=== PATIENT | male | born 1935 | race Caucasian/White ===

== ENCOUNTER → 2023-08-30 10:43 | Outpatient (REF) | payer MEDICARE, OTHER, SELFPAY ==
[2023-08-30 12:14] LABS: Urine Albumin Trace (Neg - Trace); Urine Bilirubin Negative (Negative); Urine Character Clear (Clear); Urine Color Yellow; Urine Glucose Negative (Negative); Urine Ketone Negative (Negative); Urine Leukocyte Negative (Negative); Urine Nitrite Negative (Negative); Urine Occult Blood Negative (Negative); Urine Urobilinogen Negative (Neg - 1+)
[2023-08-30 12:18] LABS: % Basophils 0.7 % (0-2); % Eosinophils 2.8 % (0-6); % Immature Granulocytes 0.6 % (0-0.5); % Lymphocytes 24.4 % (20.5-51.1); % Monocytes 11.1 % (1.7-9.3); % Neutrophils 60.4 % (42.2-75.2); Absolute Eosinophils 0.2 10^3/uL (0-0.7); Absolute Lymphocytes 1.3 10^3/uL (1.2-3.4); Absolute Monocytes 0.6 10^3/uL (0.1-0.6); Absolute Neutrophils 3.3 10^3/uL (1.4-6.5); Hematocrit 40.3 % (39.0-52.0); Hemoglobin 13.5 g/dL (13.0-18.0); Mean Corp Hgb Conc. 33.5 g/dL (33.0-37.0); Mean Corpuscular Hgb 30.2 pg (27.0-31.0); Mean Corpuscular Volume 90.2 fL (80.0-94.0); Mean Platelet Volume 10.9 fL (7.4-10.4); Nucleated Red Blood Cells % 0 % (-); Platelet Count 142 10^3/uL (130-400); Red Blood Cell Count 4.47 10^6/uL (4.70-6.10); Red Cell Dist. Width 12.5 % (11.5-14.5); White Blood Cell Count 5.4 10^3/uL (4.8-10.8)
[2023-08-30 12:44] LABS: ALT (SGPT) 31 U/L (0-50); AST (SGOT) 34 U/L (17-59); Alkaline Phosphatase 92 U/L (38-126); Blood Urea Nitrogen 27 mg/dl (9-20); Calcium 10.3 mg/dl (8.4-10.2); Carbon Dioxide 26 mmol/L (22-30); Chloride 105 mmol/L (98-107); Glucose 109 mg/dl (70-99); HDL Cholesterol 80 mg/dl; LDL Cholesterol, Calculated 99 mg/dl; Potassium 4.3 mmol/L (3.5-5.1); Sodium 136 mmol/L (135-145); Total Bilirubin 0.9 mg/dl (0.2-1.3); Total Cholesterol 192 mg/dl (50-199); Triglyceride 68 mg/dl (10-149); Very Low Density Lipoprotein 13 mg/dl (0-30); eGFR > 60.00
[2023-08-30 12:47] LABS: Glycohemoglobin (HgbA1c) 5.9 % (4.0-5.6)
[2023-08-30 12:53] LABS: Vitamin D, 25-OH*** 33.9 ng/mL (30-80)
== END ==
LOC: REG 10:43
PROVIDERS: ATTENDING PHYSICIAN Internal Medicine Geriatric Medicine
DX: I34.0 Nonrheumatic mitral (valve) insufficiency (principal); I10 Essential (primary) hypertension; K21.9 Gastro-esophageal reflux disease without esophagitis; E55.9 Vitamin D deficiency, unspecified; Z86.010 Personal history of colon polyps; D64.9 Anemia, unspecified; E78.2 Mixed hyperlipidemia; E21.3 Hyperparathyroidism, unspecified; Z95.0 Presence of cardiac pacemaker; E66.9 Obesity, unspecified; G47.30 Sleep apnea, unspecified; I42.8 Other cardiomyopathies; G43.009 Migraine without aura, not intractable, without status migrainosus; I95.2 Hypotension due to drugs; R73.01 Impaired fasting glucose
CPT/HCPCS: 36415; 80053; 80061; 81003; 82306; 83036; 85025

== ENCOUNTER 2023-11-25 21:29 | Emergency (ER) | payer MEDICARE, OTHER, SELFPAY ==
[2023-11-25 22:00] VITALS: BP 169/74
[2023-11-25 22:00] LABS: % Basophils 0.9 % (0-2); % Eosinophils 1.8 % (0-6); % Immature Granulocytes 0.4 % (0-0.5); % Lymphocytes 17.9 % (20.5-51.1); % Monocytes 12.4 % (1.7-9.3); % Neutrophils 66.6 % (42.2-75.2); Absolute Basophils 0.1 10^3/uL (0-0.2); Absolute Eosinophils 0.1 10^3/uL (0-0.7); Absolute Lymphocytes 1.4 10^3/uL (1.2-3.4); Absolute Monocytes 0.9 10^3/uL (0.1-0.6); Hematocrit 37.6 % (39.0-52.0); Hemoglobin 13.1 g/dL (13.0-18.0); Mean Corp Hgb Conc. 34.8 g/dL (33.0-37.0); Mean Corpuscular Hgb 30.5 pg (27.0-31.0); Mean Corpuscular Volume 87.4 fL (80.0-94.0); Mean Platelet Volume 10.5 fL (7.4-10.4); Nucleated Red Blood Cells % 0 % (-); Platelet Count 157 10^3/uL (130-400); Red Cell Dist. Width 12.6 % (11.5-14.5); White Blood Cell Count 7.6 10^3/uL (4.8-10.8)
[2023-11-25 22:52] LABS: ALT (SGPT) 30 U/L (0-50); AST (SGOT) 38 U/L (17-59); Albumin 4.1 g/dl (3.5-5.0); Alkaline Phosphatase 141 U/L (38-126); Blood Urea Nitrogen 33 mg/dl (9-20); Calcium 10.1 mg/dl (8.4-10.2); Carbon Dioxide 23 mmol/L (22-30); Chloride 103 mmol/L (98-107); Glucose 130 mg/dl (70-99); Sodium 135 mmol/L (135-145); Total Bilirubin 0.5 mg/dl (0.2-1.3); Total Protein 7.1 g/dl (6.3-8.2); eGFR > 60.00
[2023-11-25 23:00] VITALS: BP 176/85
[2023-11-26] VITALS (7 sets, daily range): BP systolic 124–163; BP diastolic 76–93
--- NOTE | 2023-11-26 00:33 | ED.GENMED ---
History of Present Illness
<Elbert Robles MD - Last Filed: 11/27/23 06:01>
General
Chief Complaint: Chest Pain
Source: patient
Exam Limitations: none
Time Seen by Provider: 11/25/23 22:29
Nursing documentation reviewed up to this point in time: agreed with
History of Present Illness
History of Present Illness:
Patient presents to ED secondary to sudden onset of chest pain, while he was at home at 6 PM. Chest pain described as crampy and achy, nonradiating, without any alleviating or exacerbating factors. Denies associated shortness of breath, nausea, or
diaphoresis. Denies previous history of similar symptoms. Denies recent illness. Denies back pain. Denies leg pain or swelling. Denies recent change in medications or diet. Denies recent change in activities. Denies previous history of
similar chest pain. There is no family history of chest pain. Patient is an ex-smoker.
Past History
<Elbert Robles MD - Last Filed: 11/27/23 06:01>
Past History
ED Past Medical History: Arrthythmia, Cancer (Prostate), GERD and Valvular disease
ED Past Surgical History: Appendectomy and Tonsilectomy
Social History
Personal:
Review of Systems
<Elbert Robles MD - Last Filed: 11/27/23 06:01>
Review of Systems
Allergies reviewed?: Yes
All Other Systems: ROS reviewed and negative except as documented in HPI and ROS
Constitutional: Reports no symptoms
Respiratory: Reports no symptoms; Denies trouble breathing
Cardiac: Reports chest pain; Denies diaphoresis or palpitations
ABD/GI: Reports no symptoms
Musculoskeletal: Reports no symptoms
Skin: Reports no symptoms
Neurological: Reports no symptoms
Phy Exam
<Elbert Robles MD - Last Filed: 11/27/23 06:01>
Physical Exam
Physical Exam:
Physical Exam
General: no apparent distress, not acutely ill. afebrile
Head: nc/at. eomi
Neck: supple. normal range of motion.
Heart: s1/s2 regular rate and rhythm, systolic murmur. equal radial pulses.
Lungs: no acute respiratory distress. chest wall nontender to palpation.
Abdomen: normal bowel sounds. not tender.
Neuro: alert and oriented. no focal neurological deficits
Skin: no rash
Psychiatric: well kept. interactive and cooperative
Extremities: no edema. no calf tenderness.
Scores
<Elbert Robles MD - Last Filed: 11/27/23 06:01>
Heart Score for Chest Pain Patients
STEMI patient?: No
History: Moderately Suspicious
ECG: Normal
Age: >/= 65 years
Risk Factors: 1 or 2 Risk Factors
Troponin: </= Normal Limit
Heart Score for Chest Pain Patients: 4
Heart Score Risk: 20.3% MACE over next 6 weeks
<Glenroy Horta DO - Last Filed: 11/26/23 07:00>
Heart Score for Chest Pain Patients
Heart Score for Chest Pain Patients: 4
Heart Score Risk: 20.3% MACE over next 6 weeks
<Mike Chavez MD - Last Filed: 11/26/23 15:49>
Heart Score for Chest Pain Patients
Heart Score for Chest Pain Patients: 4
Heart Score Risk: 20.3% MACE over next 6 weeks
Course
<Elbert Robles MD - Last Filed: 11/27/23 06:01>
Orders/Labs/Results
Orders:
Orders
11/25/23 21:33
Electrocardiogram (*1) Urgent
Reason for Study: Chest Pain
Cardiac Monitoring- Treatment ONCE
EKG- Treatment ONCE
IV Insert/Care/Rem.- Treatment PRN
O2 Therapy [RESP] Urgent
Titrate/Wean O2 to maintain O2 sat greater than (%): 90
Special Instructions: Maintain sats >/=90%
Pulse Ox/spot Check [RESP] Urgent
Quantity: 1
Special Instructions: ON ROOM AIR
11/25/23 21:51
Complete Blood Count/With Diff Urgent
11/25/23 22:27
Comprehensive Metabolic Panel Urgent
Troponin I Urgent
11/25/23 23:45
EKG- Treatment ONCE
11/26/23 01:46
Troponin I Urgent
11/26/23 02:00
Electrocardiogram (*1) Urgent
Reason for Study: Chest Pain
11/26/23 02:28
EKG- Treatment ONCE
11/26/23 06:00
Electrocardiogram (*1) Urgent
Reason for Study: Chest Pain
11/26/23 06:01
Troponin I Urgent
11/26/23 06:40
CR Chest - 2 Views Urgent
Comment:
Reason For Exam: cp
11/26/23 09:06
Metoprolol Xl [Toprol Xl] 25 mg PO NOW STA
Abnormal Lab Results
11/25/23 11/25/23 11/26/23
21:51 22:27 01:46
RBC 4.30 L 10^6/uL
(4.70-6.10)
Hct 37.6 L %
(39.0-52.0)
MPV 10.5 H fL
(7.4-10.4)
Absolute Monos (auto) 0.9 H 10^3/uL
(0.1-0.6)
Lymphocytes % 17.9 L %
(20.5-51.1)
Monocytes % 12.4 H %
(1.7-9.3)
BUN 33 H mg/dl
(9-20)
Glucose 130 H mg/dl
(70-99)
Alkaline Phosphatase 141 H U/L
(38-126)
Troponin I 0.035 H* ng/ml
11/26/23
06:01
RBC
Hct
MPV
Absolute Monos (auto)
Lymphocytes %
Monocytes %
BUN
Glucose
Alkaline Phosphatase
Troponin I 0.038 H* ng/ml
11/25/23 21:51
11/25/23 22:27
Vital Signs
Initial and Last Documented VS:
Initial Vital Signs
Temp Pulse Resp Pulse Ox
97.9 F 100 19 94
11/25/23 21:39 11/25/23 21:39 11/25/23 21:39 11/25/23 21:39
Last Documented Vital Signs
Temp Pulse Resp BP Pulse Ox
97.9 F 75 20 124/76 99
11/25/23 21:39 11/26/23 10:05 11/26/23 10:05 11/26/23 10:05 11/26/23 10:05
<Glenroy Horta, DO - Last Filed: 11/26/23 07:00>
Orders/Labs/Results
Orders:
Orders
11/25/23 21:33
Electrocardiogram (*1) Urgent
Reason for Study: Chest Pain
Cardiac Monitoring- Treatment ONCE
EKG- Treatment ONCE
IV Insert/Care/Rem.- Treatment PRN
O2 Therapy [RESP] Urgent
Titrate/Wean O2 to maintain O2 sat greater than (%): 90
Special Instructions: Maintain sats >/=90%
Pulse Ox/spot Check [RESP] Urgent
Quantity: 1
Special Instructions: ON ROOM AIR
11/25/23 21:51
Complete Blood Count/With Diff Urgent
11/25/23 22:27
Comprehensive Metabolic Panel Urgent
Troponin I Urgent
11/25/23 23:45
EKG- Treatment ONCE
11/26/23 01:46
Troponin I Urgent
11/26/23 02:00
Electrocardiogram (*1) Urgent
Reason for Study: Chest Pain
11/26/23 02:28
EKG- Treatment ONCE
11/26/23 06:00
Electrocardiogram (*1) Urgent
Reason for Study: Chest Pain
11/26/23 06:01
Troponin I Urgent
11/26/23 06:40
CR Chest - 2 Views Urgent
Comment:
Reason For Exam: cp
11/26/23 09:06
Metoprolol Xl [Toprol Xl] 25 mg PO NOW STA
Abnormal Lab Results
11/25/23 11/25/23 11/26/23
21:51 22:27 01:46
RBC 4.30 L 10^6/uL
(4.70-6.10)
Hct 37.6 L %
(39.0-52.0)
MPV 10.5 H fL
(7.4-10.4)
Absolute Monos (auto) 0.9 H 10^3/uL
(0.1-0.6)
Lymphocytes % 17.9 L %
(20.5-51.1)
Monocytes % 12.4 H %
(1.7-9.3)
BUN 33 H mg/dl
(9-20)
Glucose 130 H mg/dl
(70-99)
Alkaline Phosphatase 141 H U/L
(38-126)
Troponin I 0.035 H* ng/ml
11/26/23
06:01
RBC
Hct
MPV
Absolute Monos (auto)
Lymphocytes %
Monocytes %
BUN
Glucose
Alkaline Phosphatase
Troponin I 0.038 H* ng/ml
11/25/23 21:51
11/25/23 22:27
Vital Signs
Initial and Last Documented VS:
Initial Vital Signs
Temp Pulse Resp Pulse Ox
97.9 F 100 19 94
11/25/23 21:39 11/25/23 21:39 11/25/23 21:39 11/25/23 21:39
Last Documented Vital Signs
Temp Pulse Resp BP Pulse Ox
97.9 F 75 20 124/76 99
11/25/23 21:39 11/26/23 10:05 11/26/23 10:05 11/26/23 10:05 11/26/23 10:05
<Mike Chavez MD - Last Filed: 11/26/23 15:49>
Orders/Labs/Results
Orders:
Orders
11/25/23 21:33
Electrocardiogram (*1) Urgent
Reason for Study: Chest Pain
Cardiac Monitoring- Treatment ONCE
EKG- Treatment ONCE
IV Insert/Care/Rem.- Treatment PRN
O2 Therapy [RESP] Urgent
Titrate/Wean O2 to maintain O2 sat greater than (%): 90
Special Instructions: Maintain sats >/=90%
Pulse Ox/spot Check [RESP] Urgent
Quantity: 1
Special Instructions: ON ROOM AIR
11/25/23 21:51
Complete Blood Count/With Diff Urgent
11/25/23 22:27
Comprehensive Metabolic Panel Urgent
Troponin I Urgent
11/25/23 23:45
EKG- Treatment ONCE
11/26/23 01:46
Troponin I Urgent
11/26/23 02:00
Electrocardiogram (*1) Urgent
Reason for Study: Chest Pain
11/26/23 02:28
EKG- Treatment ONCE
11/26/23 06:00
Electrocardiogram (*1) Urgent
Reason for Study: Chest Pain
11/26/23 06:01
Troponin I Urgent
11/26/23 06:40
CR Chest - 2 Views Urgent
Comment:
Reason For Exam: cp
11/26/23 09:06
Metoprolol Xl [Toprol Xl] 25 mg PO NOW STA
Abnormal Lab Results
11/25/23 11/25/23 11/26/23
21:51 22:27 01:46
RBC 4.30 L 10^6/uL
(4.70-6.10)
Hct 37.6 L %
(39.0-52.0)
MPV 10.5 H fL
(7.4-10.4)
Absolute Monos (auto) 0.9 H 10^3/uL
(0.1-0.6)
Lymphocytes % 17.9 L %
(20.5-51.1)
Monocytes % 12.4 H %
(1.7-9.3)
BUN 33 H mg/dl
(9-20)
Glucose 130 H mg/dl
(70-99)
Alkaline Phosphatase 141 H U/L
(38-126)
Troponin I 0.035 H* ng/ml
11/26/23
06:01
RBC
Hct
MPV
Absolute Monos (auto)
Lymphocytes %
Monocytes %
BUN
Glucose
Alkaline Phosphatase
Troponin I 0.038 H* ng/ml
11/25/23 21:51
11/25/23 22:27
Vital Signs
Initial and Last Documented VS:
Initial Vital Signs
Temp Pulse Resp Pulse Ox
97.9 F 100 19 94
11/25/23 21:39 11/25/23 21:39 11/25/23 21:39 11/25/23 21:39
Last Documented Vital Signs
Temp Pulse Resp BP Pulse Ox
97.9 F 75 20 124/76 99
11/25/23 21:39 11/26/23 10:05 11/26/23 10:05 11/26/23 10:05 11/26/23 10:05
<Elbert Robels MD - Last Filed: 11/27/23 06:01>
MDM/Problems Addressed
MDM/Problems Addressed:
Patient remains chest pain-free during observation in ED. However, patient does have risk factors for cardiac disease. In addition, repeat troponin shows a minimal elevation, when compared to first troponin. As such, decision made to obtain
another troponin in 4 hours. If remains elevated, will consult cardiology for an evaluation.
<Elbert Robles MD - Last Filed: 11/27/23 06:01>
*EKG
Interpreted by ED Provider?: Yes
EKG Intrepretation Date: 11/26/23
Heart Rate: 86
Rhythm: ventricular paced
*Critical Care Note
Total Time (30-74mins, 75-104mins- exclusive of procedures): Not Applicable
<Glenroy Horta DO - Last Filed: 11/26/23 07:00>
Update Note
Update Note:
11/26/2023 0649 AM: Repeat EKG shows a ventricular paced rhythm with PVCs rate of 80. This is unchanged from previous EKG taken at 1:50 AM today. Repeat troponin was slightly elevated. I did [place] text cardiology, Dr. Ashely López or one of
her associates will see patient in the emergency department.
<Mike Chavez MD - Last Filed: 11/26/23 15:49>
Update Note
Update Note:
11/26/2023 0649 AM: Repeat EKG shows a ventricular paced rhythm with PVCs rate of 80. This is unchanged from previous EKG taken at 1:50 AM today. Repeat troponin was slightly elevated. I did [place] [facility] cardiology, Dr. Ashely López or one of
her associates will see patient in the emergency department.
UPDATE (Mike Chavez MD)
Patient here after an episode of chest pain which has since resolved. He had paced rhythm on EKG. He had labs which showed a marginally elevated troponin which has been flat. Case was discussed with cardiology to evaluate as patient was declining
admission. He was seen evaluate by cardiology here at the bedside. They arranged for outpatient follow-up next week and outpatient stress test. Recommended starting on Toprol as his blood pressures were elevated overnight. Stable for discharge
from their perspective. Patient requesting to be discharged. He is comfortable with this follow-up plan.
ED Attending Note
<Elbert Robles MD - Last Filed: 11/27/23 06:01>
-
Portions of this chart may have been created with voice recognition software.� Occasional wrong word or��sound alike� substitutions may have occurred due to the inherent limitations of voice recognition software.
Discharge Plan
Departure
Patient Disposition: Home (Routine Discharge)
Date of Disposition: 11/26/23
Time of Disposition: 09:06
Patient with high blood pressure during this ER visit?: Yes
Discharge Problem:
Chest pain
Instructions: Chest Pain DCA Follow Up
Prescriptions:
New
metoprolol succinate [Toprol XL] 25 mg tablet extended release 24 hr
25 mg PO DAILY Qty: 30 0RF
No Action
rabeprazole [AcipHex] 20 MG tablet,delayed release (DR/EC)
20 mg PO DAILY
Eliquis 5 MG tablet
5 mg PO BID
furosemide 40 mg Tablet
40 mg PO DAILY@1400
docusate sodium [Stool Softener] 100 mg Capsule
100 mg PO DAILY
Referrals:
Jacki Carter PA-C [Specified Professional Personl] - 12/03/23 2:20 pm (You have a follow up visit with Dr. Degroot's PA, Jacki Carter, at the [place] office. Please call with questions)
UNKNOWN - PT DOES,NOT KNOW [Family Provider] -
Activity Restrictions/Additional Instructions:
Thank you for visiting the Emergency Department at [facility].
1. Please schedule a follow up appointment as directed. Call first thing tomorrow morning to make an appointment.
2. If indicated, please take your medications as instructed and indicated on discharge paperwork.
3. If any of your symptoms do not improve, or persist, or become more severe within 6-12 hours, please return to the emergency department for further care.
4. Please return to the emergency department if you develop a headache, neck pain/stiffness, fever greater than 100.4F, chest pain, shortness of breath, persistent nausea, vomiting, slurred speech, difficulty walking, numbness/tingling, weakness,
signs of infection or any other symptoms that are worrisome to you.
Please call [phone] if you have any questions.
Interventions
Interventions:
*Risk Screen - Suicide Last Done: 11/25/23 21:39
*General Assessment Last Done: 11/25/23 21:39
*Neglect/Abuse Screening Last Done: 11/25/23 21:39
*ED COVID-19 Vaccine History Last Done: 11/25/23 21:39
*Nursing Disposition Last Done: 11/26/23 10:05
ED- Cardiac Assessment Last Done: 11/25/23 23:40
Discharge Date and Time
Discharge Date/Time: 11/26/23 10:06
Print Language: TURKMEN
[2023-11-26 02:24] LABS: Troponin I 0.035 ng/ml
[2023-11-26 06:37] LABS: Troponin I 0.038 ng/ml
--- NOTE | 2023-11-26 07:41 | CON.CAR ---
Addendum entered and electronically signed by Ese Shipman DO 11/26/23 16:28:
I saw and examined the patient.
The Manager Meat's note was reviewed and I agree with the note.
Comment: Patient seen and examined in ED bed 2 with cardiac PADusty Morales is an 88 year old male [his birthday was yesterday ] with PMH of permanent atrial fibrillation, TAVR, PPM, LBBB, HTN, ABILIO, GERD, and prostate cancer who presented to [facility] for
evaluation of chest pressure. He states he was sitting at the table with his around 6PM when he noted an aching along the left side of his chest. He states it was mild in nature and he denied any pain, but described it as only a mild pressure.
The pressure lasted for an hour or so and his decided to call EMS. He denied any radiation of the pressure and he had no alleviating or aggravating factors. He denied associated SOB, dizziness, palpitations, diaphoresis, or nausea. On arrival
to ER, his pressure has resolved and he notes he feels well this AM. He has had no recurrence of the pressure. In ER, he was found to have mildly elevated troponin at 0.038. Workup otherwise has been unremarkable. He states he is very active at
baseline, exercising at the gym 6 days per week without any exertional chest pain or SOB.
General: Well Developed, Well Nourished and No Apparent Distress
HEENT: Normocephalic, Anicteric and Moist Mucous Membranes
Respiratory: Clear and Non Labored Respirations
Cardiac: S1/S2, Irregular Rhythm and Murmur + Pacer
Musculoskeletal: No Edema
Plan:
-Atypical chest pain with cardiac risk factors
-Pain free throughout the ER stay. Denies any recurrence of pressure. Feels well and would like to go home.
-Troponin minimally elevated at 0.035, 0.038 in ER. Suspect nonischemic myocardial injury.
-Prior cath in 02/2022 with no significant CAD noted.
-Outpatient cardiac stress testing and follow-up to be arranged
-ACS warning signs and when to return to the ER to seek immediate medical attention reviewed with patient.
Hypertension with uncontrolled blood pressures
-Will start Toprol-XL 25 mg once daily
-Permanent atrial fibrillation status post pacemaker
-Continue Eliquis for anticoagulation.
-Appears euvolemic.
Plan to discharge home with arranged cardiac testing and follow-up as an outpatient
Discussed with the ER physician
Original Note:
Consultation
Consultation Request
Date/Time Consultation Requested: 11/26/2023
Date/Time Consultation Performed: 11/26/2023
Requesting Provider: Dr. Robles
Performing Provider: Dr. Shipman
Reason for Consultation: CP
Medical History
-
History of Present Illness:
HPI: Andrew is an 88 year old male with PMH of permanent atrial fibrillation, TAVR, PPM, LBBB, HTN, ABILIO, GERD, and prostate cancer who presented to [facility] for evaluation of chest pressure. He states he was sitting at the table with his around 6PM
when he noted an aching along the left side of his chest. He states it was mild in nature and he denied any pain, but described it as only a mild pressure. The pressure lasted for an hour or so and his decided to call EMS. He denied any
radiation of the pressure and he had no alleviating or aggravating factors. He denied associated SOB, dizziness, palpitations, diaphoresis, or nausea. On arrival to ER, his pressure has resolved and he notes he feels well this AM. He has had no
recurrence of the pressure. In ER, he was found to have mildly elevated troponin at 0.038. Workup otherwise has been unremarkable. He states he is very active at baseline, exercising at the gym 6 days per week without any exertional chest pain or
SOB. He states he has never had pressure in his chest like this before.
PMH:
Permanent atrial fibrillation
Chronic Eliquis anticoagulation
NICM w/ EF 40-45% 11/2022
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
LBBB
Mild MR
HTN
ABILIO on CPAP�
Barretts esophagus�
Macular degeneration�
Mild diverticulosis�
Sweet syndrome�
Colon polys�
Appendectomy
GERD�
Hiatal Hernia�
Prostate CA/XRT�
Home self-catheterization�
Past Medical History
Past Medical History: Other (In HPI)
Past Surgical History: Appendectomy, Cardiac (TAVR, PPM ) and Tonsilectomy
Social History
Tobacco: Former Smoker
Alcohol: None
Drug: None
Personal:
Living: With Family
Employment: Retired
Family History
Family History: CAD
Allergies / Home Medications
Allergy/AdvReac Type Severity Reaction Status Date / Time
aspirin Allergy Hives Verified 11/25/23 21:39
Penicillins Allergy Hives, Verified 11/25/23 21:39
throat
swelling
�Medication �Instructions �Recorded �Confirmed �Type
apixaban 5 mg tablet (Eliquis) 5 mg PO BID Blood pressure 11/11/21 03/26/22 History
rabeprazole 20 mg tablet,delayed 20 mg PO DAILY GERD 11/11/21 03/26/22 History
release (AcipHex)
ascorbic acid (vitamin C) 500 mg 500 mg PO DAILY Supplement 11/21/21 03/26/22 History
tablet (Vitamin C)
zinc 100 mg tablet (Zinc Chelate) 100 mg PO DAILY Supplement 11/21/21 03/26/22 History
acetaminophen 325 mg tablet 650 mg (2 x 325 mg) PO Q4HPRN PRN 03/27/22 Rx
pain #0 tabs
Review of Systems
-
History Source: Patient
All other systems: Negative unless noted
Physical Exam
Vital Signs
Temp Pulse Resp BP Pulse Ox
97.9 F 104 22 156/89 87
11/25/23 21:39 11/26/23 03:45 11/26/23 03:45 11/26/23 03:00 11/26/23 00:56
Lab Results
11/25/23 21:51
11/25/23 22:27
Troponin I 0.038 ng/ml H* 11/26/23 06:01
Physical Exam
General: Well Developed, Well Nourished and No Apparent Distress
HEENT: Normocephalic, Anicteric and Moist Mucous Membranes
Respiratory: Clear and Non Labored Respirations
Cardiac: S1/S2, Irregular Rhythm and Murmur
Musculoskeletal: No Clubbing, No Cyanosis and No Edema
Skin: Warm and Dry
Neuro: AO x 3 and Nonfocal/Grossly Intact
Psych: Calm
Impression / Plan
-
PCP: Dr. Foster
Biology Specialist: Dr. Degroot
Impression:
Presented with chest pressure
Elevated troponin
Permanent atrial fibrillation
Chronic Eliquis anticoagulation
NICM w/ EF 40-45% 11/2022
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
LBBB
Mild MR
HTN
ABILIO on CPAP�
Barretts esophagus�
Macular degeneration�
Mild diverticulosis�
Sweet syndrome�
Colon polys�
Appendectomy
GERD�
Hiatal Hernia�
Prostate CA/XRT�
Home self-catheterization�
LHC 02/11/2022: Left Main: normal. LAD: minor luminal irregularities noted with no focal obstructive disease. Ramus: minor irregularities. LCx: 40% ostial narrowing. RCA: small nondominant.
Echo 11/26/2022: EF 40-45%, mild-mod MR, s/p TAVR w/ peak/mean gradients 19/10 mmHg, mild-mod paravalvular AI, mod TR, mild-mod pulmonary hypertension 48 mmHg
Echo 11/26/2023: Study pending
Plan:
-Presented with chest pressure that started while sitting w/ at 6PM. No associated SOB. Denies any overt pain.
-Pain free throughout the ER stay. Denies any recurrence of pressure. Feels well and would like to go home.
-Troponin minimally elevated at 0.035, 0.038 in ER. Suspect nonischemic myocardial injury.
-Prior cath in 02/2022 with no significant CAD noted.
-Permanent atrial fibrillation noted w/ LBBB, HR stable on review of tele and on EKG. Occasional V pacing.
-Continue Eliquis for anticoagulation.
-BP somewhat elevated in ER. Maintained on lasix 40mg daily as OP, previously on losartan 50mg daily. Previously discontinued due to hypotension. Will start Toprol XL 25mg daily.
-Appears euvolemic.
-Check echo while in ER. If stable, ok for discharge.
-Cardiology follow up arranged and will arranged stress testing as OP.
HPI: Andrew is an 88 year old male with PMH of permanent atrial fibrillation, TAVR, PPM, LBBB, HTN, ABILIO, GERD, and prostate cancer who presented to [facility] for evaluation of chest pressure. He states he was sitting at the table with his around 6PM
when he noted an aching along the left side of his chest. He states it was mild in nature and he denied any pain, but described it as only a mild pressure. The pressure lasted for an hour or so and his decided to call EMS. He denied any
radiation of the pressure and he had no alleviating or aggravating factors. He denied associated SOB, dizziness, palpitations, diaphoresis, or nausea. On arrival to ER, his pressure has resolved and he notes he feels well this AM. He has had no
recurrence of the pressure. In ER, he was found to have mildly elevated troponin at 0.038. Workup otherwise has been unremarkable. He states he is very active at baseline, exercising at the gym 6 days per week without any exertional chest pain or
SOB. He states he has never had pressure in his chest like this before.
Data Reviewed
-
EKG: Tracing Personally Visualized and interpreted
Radiology: Report Reviewed by me
Labs: Labs Reviewed by me
Old Records: Reviewed
[2023-11-26] MEDS: TOPROL XL 25 MG PO (09:17)
== END 2023-11-26 10:06 | disposition home or self-care (01) ==
LOC: EMR 21:29
PROVIDERS: EMERGENCY PHYSICIAN Emergency Medicine; OTHER PHYSICIAN Internal Medicine Cardiovascular Disease
DX: R07.89 Other chest pain (principal); I48.21 Permanent atrial fibrillation; I44.7 Left bundle-branch block, unspecified; I10 Essential (primary) hypertension; G47.33 Obstructive sleep apnea (adult) (pediatric); K21.9 Gastro-esophageal reflux disease without esophagitis; K22.70 Barrett's esophagus without dysplasia; K57.90 Diverticulosis of intestine, part unspecified, without perforation or abscess without bleeding; H35.30 Unspecified macular degeneration; K44.9 Diaphragmatic hernia without obstruction or gangrene; Z95.0 Presence of cardiac pacemaker; Z79.01 Long term (current) use of anticoagulants; Z85.46 Personal history of malignant neoplasm of prostate; Z95.2 Presence of prosthetic heart valve; Z87.891 Personal history of nicotine dependence; Z88.6 Allergy status to analgesic agent; Z88.0 Allergy status to penicillin
CPT/HCPCS: 99285; 94760; 71046; 80053; 84484; 85025; 93005

== ENCOUNTER → 2023-12-29 13:57 | Outpatient (REF) | payer MEDICARE, OTHER, SELFPAY | LOC: RCS 13:57 | PROVIDERS: ATTENDING PHYSICIAN Physician Assistant Medical; FAMILY PHYSICIAN Internal Medicine Geriatric Medicine | DX: Z95.3 Presence of xenogenic heart valve (principal) | CPT/HCPCS: 93306 ==

== ENCOUNTER → 2024-04-03 12:32 | Outpatient (REF) | payer MEDICARE, OTHER, SELFPAY | LOC: WOUND 12:32 | PROVIDERS: ATTENDING PHYSICIAN Surgery | DX: L97.829 Non-pressure chronic ulcer of other part of left lower leg with unspecified severity (principal); Z95.3 Presence of xenogenic heart valve; Z95.0 Presence of cardiac pacemaker; I48.21 Permanent atrial fibrillation | CPT/HCPCS: 99203 ==

== ENCOUNTER 2024-05-24 06:29 | Day surgery (SDC) | payer MEDICARE, OTHER, SELFPAY ==
[2024-05-24 07:32] VITALS: BMI 30.1
[2024-05-24 07:33] VITALS: BP 161/76
[2024-05-24] MEDS: NEO-SYNEPHRINE 2.5% OPH SOL. 1 DROP OPHTH (07:44)
[2024-05-24] MEDS: POLYTRIM OPHTHALMIC SOLUTION 1 DROP OPHTH (07:44)
[2024-05-24] MEDS: ALCAINE 0.5% EYE DROPS 1 DROP OPHTH (07:44)
[2024-05-24] MEDS: CYCLOGYL 1% EYE DROPS 1 DROP OPHTH (07:44)
[2024-05-24] MEDS: MYDRIACYL 1 DROP OPHTH (07:44)
[2024-05-24] MEDS: PRED FORTE 1% EYE DROPS 1 DROP OPHTH (07:44)
[2024-05-24] MEDS: AKTEN OPHTHALMIC GEL 1 ML OPHTH (07:45)
[2024-05-24] MEDS: ACUVAIL 1 DROPS OPHTH (07:45)
[2024-05-24 09:45] VITALS: BP 156/75
== END 2024-05-24 10:30 | disposition home or self-care (01) ==
LOC: SDS 06:29
PROVIDERS: ATTENDING PHYSICIAN Ophthalmology
DX: H25.11 Age-related nuclear cataract, right eye (principal)
CPT/HCPCS: 66984